=== PATIENT | female | born 1945 | race Caucasian/White ===

== ENCOUNTER 2019-03-29 07:02 | Inpatient (IN) | payer OTHER, BC ==
[2019-03-14 12:54] VITALS: BMI 29.3
[2019-03-29] MEDS ORDERED: ceFAZolin SODIUM 1 GM VIAL ONE (07:44)
[2019-03-29] MEDS ORDERED: VANCOMYCIN 1,000 MG VIAL (RESTRICTED TO ID ONLY) ONE (07:44)
[2019-03-29] MEDS ORDERED: TRANEXAMIC ACID 1000 MG/10 ML VIAL IVPUSH ONE (07:45)
[2019-03-29] MEDS ORDERED: CELECOXIB 200 MG CAPSULE PO ONE (07:45)
[2019-03-29] MEDS ORDERED: CEFAZOLIN 2 GM in DEXTROSE 5%-WATER - 50 ML IVPB ONE (07:45)
--- NOTE | 2019-03-29 07:58 | HP ---
Satellite PMH - Chief Complaint Chief Complaint: left hip pain - Past Medical History Allergies/Adverse Reactions: Allergies Allergy/AdvReac Type Severity Reaction Status Date / Time ratliff Allergy Severe Hives Verified 03/14/19 12:43 kiwi Allergy Severe Hives Verified 03/14/19 12:43 mushroom Allergy Severe Hives Verified 03/14/19 12:43 Penicillins Allergy Severe Rash Verified 03/14/19 12:43 pineapple Allergy Severe Hives Verified 03/14/19 12:43 strawberry Allergy Severe Hives Verified 03/14/19 12:43 Sulfa (Sulfonamide Allergy Severe Hives Verified 03/14/19 12:43 Antibiotics) wheat Allergy Intermediate Hives Verified 03/14/19 12:43 cigarette smoke AdvReac Severe MIGRAINE Verified 03/14/19 12:43 HEADACHES latex AdvReac Severe Itching Verified 03/29/19 07:46 - Current Medications Current Medications: Home Medications Medication Instructions Recorded Aspirin/Acetaminophen/Caffeine 1 each PO DAILY PRN 03/14/19 [Excedrin Migraine Caplet] Atorvastatin Ca [Lipitor] 20 mg PO HS 03/14/19 Estradiol [Estrace] 42.5 gm VG ASDIR 03/14/19 Fexofenadine HCl [Irene Allergy] 180 mg PO DAILY PRN 03/14/19 Fluoxetine HCl [Prozac] 30 mg PO DAILY 03/14/19 LORazepam [Ativan] 1 mg PO BID 03/14/19 Lorazepam [Ativan] 1 mg PO DAILY PRN 03/14/19 Zolmitriptan [Zomig] 2.5 mg PO DAILY PRN 03/14/19 Acetaminophen [Tylenol] 650 mg PO ASDIR PRN 03/29/19 Satellite Physical Exam - Physical Examination Vital Signs: Vital Signs Period Temp Pulse Resp BP Sys/Araujo Pulse Ox Last 24 Hr 98 F 98 18 124/78 General Appearance: Well Nourished, Well Developed, Alert & Oriented x3 ENT: Clear Lung: Normal air movement Heart: Regular rate & rhythm Extremities: Other (left hip- + ttp, decr rom, nvi, xrays show grade 4 hip djd) Neurological: Intact, Alert, Oriented Satellite Impression/Plan - Impression/Plan Impression: left hip djd Operative Procedure: left shonda thr Date to be Performed: 03/29/19
[2019-03-29] MEDS ORDERED: MIDAZOLAM HCL 2 MG/2 ML SINGLE DOSE VIAL ONE ×2 (08:10→10:01)
[2019-03-29] MEDS ORDERED: BUPIVACAINE HCL/PF 0.5% (5 MG/ML) 30 ML VIAL IJ ONE (09:41)
[2019-03-29] MEDS ORDERED: ePHEDrine SULFATE 50 MG/1 ML AMPULE ONE (09:47)
[2019-03-29] MEDS ORDERED: PHENYLEPHRINE HCL 10 MG/1 ML SINGLE DOSE VIAL ONE (09:47)
[2019-03-29] MEDS ORDERED: SUCCINYLCHOLINE CHLORIDE 200 MG/10 ML SYRINGE ONE (09:47)
[2019-03-29] MEDS ORDERED: PROPOFOL 20 ML ONE ×3 (09:48)
[2019-03-29] MEDS ORDERED: ZOLMITRIPTAN 2.5 MG PO PRN (09:55)
[2019-03-29] MEDS ORDERED: MAG HYDROX/AL HYDROX/SIMETH 30 ML UNIT-DOSE CUP PO PRN (09:56)
[2019-03-29] MEDS ORDERED: MAGNESIUM HYDROX 2400MG/30ML ORAL SUSPENSION 30 ML CUP PO PRN (09:56)
[2019-03-29] MEDS ORDERED: ONDANSETRON 4 MG/2 ML VIAL IVPUSH PRN ×2 (09:56→11:56)
[2019-03-29] MEDS ORDERED: PATIENT'S OWN MEDICATION (NON-FORMULARY) (Estradiol [Estrace] 42.5 GM) VG SCH (10:00)
[2019-03-29] MEDS ORDERED: LACTATED RINGERS SOLUTION 1,000 ML IV SCH (10:00)
[2019-03-29] MEDS ORDERED: TRANEXAMIC ACID 1000 MG/10 ML VIAL ONE (11:05)
--- NOTE | 2019-03-29 11:30 | OP ---
Operative Note - Note: Operative Date: 03/29/19 (juan francisco) Pre-Operative Diagnosis: left hip djd Operation: left shonda thr Post-Operative Diagnosis: Same as Pre-op Surgeon: Alfonso Galindo Otorhinolaryngologist: Nj Key Anesthesiologist/INDUSTRIAL ECONOMICS TEACHER: Clarice Hansen Anesthesia: Spinal, Local Specimens Removed: femoral head Estimated Blood Loss (mls): 300
[2019-03-29] MEDS ORDERED: ACETAMINOPHEN 1000 MG/100 ML VIAL (NON FORMULARY) IVPB ONE (11:53)
[2019-03-29] MEDS ORDERED: oxyCODONE HCL 5 MG TABLET PO PRN ×2 (11:53)
[2019-03-29] MEDS ORDERED: ACETAMINOPHEN INJECTION 100 ML IVPB ONE (12:04)
--- NOTE | 2019-03-29 17:12 | PN ---
Progress Note, Physician Chief Complaint: Left Total Hip Replacement History of Present Illness: Previous notes and events reviewed awake and alert NAD POD #0 L THR patient states pain is controlled denies chest pain or SOB - Current Medication List Current Medications: Active Medications Al Hydroxide/Mg Hydroxide (Mylanta Oral Suspension -) 30 ml PO Q4H PRN PRN Reason: DYSPEPSIA Aspirin (Ecotrin -) 325 mg PO DAILY@0800 [facility] Atorvastatin Calcium (Lipitor -) 20 mg PO HS [facility] Fentanyl (Sublimaze Injection -) 50 mcg IVPUSH [id number] PRN PRN Reason: PAIN-PACU ORDER X 4 DOSES ONLY Fluoxetine HCl (Prozac -) 30 mg PO DAILY [facility] Cefazolin Sodium/Dextrose (Ancef 2 Gm Premixed Ivpb -) 2 gm in 50 mls @ 100 mls /hr IVPB Q8H-IV [facility] Stop: 03/30/19 02:29 Lactated Ringer's (Lactated Ringers Solution) 1,000 mls @ 125 mls/hr IV ASDIR [facility] Stop: 03/30/19 06:00 Last Admin: 03/29/19 12:30 Dose: 0 mls Lactated Ringer's (Lactated Ringers Solution) 1,000 mls @ 125 mls/hr IV ASDIR [facility] Lorazepam (Ativan -) 1 mg PO BID [facility] Magnesium Hydroxide (Milk Of Magnesia -) 30 ml PO PRN PRN PRN Reason: CONSTIPATION Multivitamins/Minerals/Vitamin C (Tab-A-Vit -) 1 tab PO DAILY [facility] Non-Formulary Medication (Estradiol [Estrace]) 42.5 gm VG ASDIR [facility] Non-Formulary Medication (Zolmitriptan [Zomig]) 2.5 mg PO DAILY PRN PRN Reason: MIGRAINE HEADACHE Ondansetron HCl (Zofran Injection) 4 mg IVPUSH Q6H PRN PRN Reason: NAUSEA Oxycodone HCl (Roxicodone -) 5 mg PO Q3H PRN PRN Reason: PAIN LEVEL 1-5 Oxycodone HCl (Roxicodone -) 10 mg PO Q3H PRN PRN Reason: PAIN LEVEL 6-10 Pantoprazole Sodium (Protonix -) 40 mg PO DAILY [facility] Senna/Docusate Sodium (Pericolace -) 2 tablet PO BID [facility] - Objective Vital Signs: Vital Signs Temperature 98.2 F 03/29/19 12:50 Pulse Rate 82 03/29/19 12:50 Respiratory Rate 18 03/29/19 12:50 Blood Pressure 118/72 03/29/19 12:50 O2 Sat by Pulse Oximetry (%) 100 03/29/19 12:50 Constitutional: Yes: No Distress, Calm Eyes: Yes: Conjunctiva Clear HENT: Yes: Atraumatic Cardiovascular: Yes: Regular Rate and Rhythm Respiratory: Yes: Regular, CTA Bilaterally Gastrointestinal: Yes: Normal Bowel Sounds, Soft Musculoskeletal: Yes: Muscle Weakness Extremities: Yes: WNL Edema: No Wound/Incision: Yes: Dressing Dry and Intact Neurological: Yes: Alert, Oriented Psychiatric: Yes: Alert, Oriented Problem List - Problems (1) Status post left hip replacement Assessment/Plan: -Orthopedic on board -pain control -Incentive Spirometer -Cefazolin -dvt ppx -stool softener -PT Code(s): Z96.642 - PRESENCE OF LEFT ARTIFICIAL HIP JOINT Assessment/Plan see problem list dvt ppx
[2019-03-29] MEDS: CEFAZOLIN 2 GM/D5W 2 GM/50 ML ML IVPB SCH (18:23)
[2019-03-29] MEDS ORDERED: ACETAMINOPHEN/CAFFEINE/BUTALBITAL 1 TAB PO ONE (21:33)
[2019-03-29] MEDS: ATORVASTATIN CA 20 MG TABLET (FP) PO SCH (21:51)
[2019-03-29] MEDS: SENNOSIDES/DOCUSATE COMBO (SENNA PLUS) TABLET (UD) PO SCH (21:52)
[2019-03-29] MEDS: LORazepam 1 MG TABLET PO SCH (21:53)
[2019-03-30] MEDS: CEFAZOLIN 2 GM/D5W 2 GM/50 ML ML IVPB SCH (02:01)
[2019-03-30] MEDS: ACETAMINOPHEN 325 MG TABLET (FP) PO PRN (04:57)
[2019-03-30] MEDS ORDERED: KETOROLAC TROMETHAMINE 30 MG/1 ML VIAL IVPUSH ONE (06:45)
[2019-03-30 07:39] LABS: HEMATOCRIT 28.7 % (32.4-45.2); HEMOGLOBIN 9.6 GM/dl (10.7-15.3); MCH 27.9 pg (25.7-33.7); MCHC 33.3 g/dl (32.0-36.0); MEAN CELL VOLUME 83.8 fl (80-96); MEAN PLT VOLUME 8.3 fl (7.5-11.1); PLATELET COUNT 176 K/MM3 (134-434); RBC 3.42 M/mm3 (3.60-5.2); RDW 12.8 % (11.6-15.6)
[2019-03-30] MEDS: SENNOSIDES/DOCUSATE COMBO (SENNA PLUS) TABLET (UD) PO SCH ×3 (07:48→21:40)
[2019-03-30] MEDS: PANTOPRAZOLE 40 MG TABLET (FP) PO SCH ×2 (07:49→09:46)
[2019-03-30] MEDS: MULTIVITAMINS (DAILY MVI) TABLET (FP) PO SCH ×2 (07:49→09:46)
[2019-03-30] MEDS: LACTATED RINGERS SOLUTION 1,000 ML IV SCH ×2 (07:49→16:07)
[2019-03-30] MEDS ORDERED: KETOROLAC TROMETHAMINE 30 MG/1 ML VIAL IVPUSH SCH (08:15)
--- NOTE | 2019-03-30 08:49 | PN ---
Progress Note (short form) - Note Progress Note: Post op day#1.S/p Left total hip MAKOplasty under spinal anesthesia with L2 paravertebral block uneventful.Patient stable and c/o pain score of 5-6/10 for which she is on medication.No any anesthsia related problem.Patient Dc from the anesthesia care.
--- NOTE | 2019-03-30 08:54 | PN ---
Progress Note, Physician Chief Complaint: AWAKE ALERT EVENTS REVIEWED + URINE OUTPUT +FLATULENCE PAIN CONTROLLED - Current Medication List Current Medications: Active Medications Acetaminophen (Tylenol -) 650 mg PO Q4H PRN PRN Reason: PAIN LEVEL 1-5 Last Admin: 03/30/19 04:57 Dose: 650 mg Al Hydroxide/Mg Hydroxide (Mylanta Oral Suspension -) 30 ml PO Q4H PRN PRN Reason: DYSPEPSIA Aspirin (Ecotrin -) 325 mg PO DAILY@0800 [facility] Atorvastatin Calcium (Lipitor -) [address] [facility] Last Admin: 03/29/19 21:51 Dose: 20 mg Fluoxetine HCl (Prozac -) [address] [facility] Lactated Ringer's (Lactated Ringers Solution) 1,000 mls @ 125 mls/hr IV ASDIR [facility] Last Admin: 03/30/19 07:49 Dose: Not Given Ketorolac Tromethamine (Toradol Injection -) [address] [facility] Stop: 03/31/19 01:01 Lorazepam (Ativan -) [address] [facility] Last Admin: 03/29/19 21:53 Dose: 1 mg Magnesium Hydroxide (Milk Of Magnesia -) 30 ml PO PRN PRN PRN Reason: CONSTIPATION Multivitamins/Minerals/Vitamin C (Tab-A-Vit -) [address] [facility] Last Admin: 03/30/19 07:49 Dose: Not Given Non-Formulary Medication (Estradiol [Estrace]) 42.[address] [facility] Non-Formulary Medication (Zolmitriptan [Zomig]) 2.5 mg PO DAILY PRN PRN Reason: MIGRAINE HEADACHE Ondansetron HCl (Zofran Injection) 4 mg IVPUSH Q6H PRN PRN Reason: NAUSEA Oxycodone HCl (Roxicodone -) 5 mg PO Q3H PRN PRN Reason: PAIN LEVEL 1-5 Oxycodone HCl (Roxicodone -) 10 mg PO Q3H PRN PRN Reason: PAIN LEVEL 6-10 Last Admin: 03/29/19 17:25 Dose: 10 mg Pantoprazole Sodium (Protonix -) [address] [facility] Last Admin: 03/30/19 07:49 Dose: Not Given Senna/Docusate Sodium (Pericolace -) [address] [facility] Last Admin: 03/30/19 07:48 Dose: Not Given - Objective Vital Signs: Vital Signs Temperature 98.2 F 03/30/19 05:00 Pulse Rate 96 H 03/30/19 05:00 Respiratory Rate 19 03/30/19 05:00 Blood Pressure 153/62 03/30/19 05:00 O2 Sat by Pulse Oximetry (%) 97 03/30/19 07:51 Constitutional: Yes: Mild Distress Cardiovascular: Yes: Regular Rate and Rhythm Respiratory: Yes: WNL Gastrointestinal: Yes: WNL Genitourinary: Yes: WNL Musculoskeletal: Yes: Other Neurological: Yes: WNL ...Motor Strength: LLE Psychiatric: Yes: WNL Labs: CBC, BMP 03/30/19 06:20 Problem List - Problems (1) Status post left hip replacement Code(s): Z96.642 - PRESENCE OF LEFT ARTIFICIAL HIP JOINT Assessment/Plan PAIN CONTROLLED TO GO HOME FOR DISCHARGE WITH PROJECTOR OPERATOR/PT OOB TO CHAIR PT EVAL APPRECIATED DVT PROPHYLAXIS
--- NOTE | 2019-03-30 08:58 | SPEC ---
DATE OF OPERATION: 03/29/2019 PREOPERATIVE DIAGNOSIS: Degenerative joint disease left hip. POSTOPERATIVE DIAGNOSIS: Degenerative joint disease left hip. PROCEDURE PERFORMED: Left total hip replacement with robotic-assisted navigation (MAKOplasty). SURGICAL ATTENDING: Alfonso Galindo MD FILM CUTTER: GERONIMO Pope ANESTHESIA: Regional and spinal. CLOSURE: A Jayshree total hip system with a 46 press-fit Trident II acetabular shell, a No. 5 Accolade II press-fit femoral stem, and a +3 MDM head and liner for the head, number 1 Vicryl for fascia, 0 and 2-0 subcutaneous, 3-0 V-Loc for skin with skin glue, 4-0 undyed Vicryl for pin sites. ESTIMATED BLOOD LOSS: Less 100 mL. COMPLICATIONS: None. CONDITION: To the recovery room in stable condition. DESCRIPTION OF PROCEDURE: The patient was taken to the operating room on March 29, 2019. General and regional anesthesia was administered by the anesthesiologist. IV Kefzol and TXA were administered prophylactically prior to the case. The patient was placed in the lateral decubitus position will all prominences well-padded. The left hip area was prepped and draped in the usual sterile fashion. Using 3 small stab incisions over the iliac crest, 3 threaded pins were drilled in power fashion through the 2 tables of the crest. These pins were fastened and the navigation array for the Drew navigation system. Next, a 12 to 15-cm curved longitudinal incision over the posterolateral aspect of the greater trochanter was incised. Hemostasis was achieved with Bovie cautery. Sharp dissection was carried down to level of the fascia. The fascia was opened the entire length of the incision, spreading the fibers of the gluteus agus in the direction of origin. A Charnley retractor was placed in this layer. Care was taken not to impale the sciatic nerve. The short external rotators were detached off the insertion of the greater trochanter and peeled off the capsule. A posterior capsulotomy was then performed. A check point was malleted into the greater trochanter and a point on the inferior pole of the patella was obtained as well. These 2 points were used to assess the preoperative offset and limb lengths of the hip. The hip was then dislocated. The femoral neck was then osteotomized down to the appropriate level as directed by the navigation device. Anterior and posterior retractors were placed, exposing the acetabulum. A circumferential labral excision was performed. A check point was malleted into the acetabulum as well. Multiple sites inside the acetabulum and around the rim were utilized to register the acetabulum with the navigation device. An excellent registration of less than 0.5 mm was obtained. The hip was then reamed with the appropriate reamer down to the appropriate depth, with the appropriate orientation and version as assessed on our preoperative plan for this patient. The reamer was removed and the acetabulum was inspected to have good bleeding surfaces throughout. The real acetabular cup was then malleted down into place, with the holes in the appropriate position, until an excellent fixation was obtained. No screws were necessary. The navigation device ensured appropriate orientation and version, with the depth as predetermined. The appropriate liner was then clipped into place. Attention was directed to the femur. The proximal femur was prepared by use a box chisel, a canal finder and serial broaches until the broach achieved excellent rigidity in the proximal femur with the appropriate version being applied. A calcar planer was used to smooth off the calcar flush with the trial components. A trial reduction with the appropriate head was done, and the hip was reduced. The hip was taken through a range of motion from full extension with external rotation to marked flexion, and was stable at 90 degrees of flexion. It was stable to marked abduction and internal rotation, with a positive hang test and negative telescoping. Limb lengths were ascertained visually as well as with the navigation device to be within the targeted range for this patient. The trial component was removed. The real component was then malleted into place. The head was cold welded to the trunnion, and the hip was reduced. Range of motion, stability and limb lengths were as described in the trial component. Then the hip was pulse antibiotic irrigated. Vancomycin powder was placed in the hip joint. The capsule was closed. The fascia was then closed as well using number 1 Vicryl interrupted suture, 0 and 2-0 subcutaneous, and 3-0 V-Loc for the skin. 4-0 undyed Vicryl was used to close the pin sites after the pins were removed. All check points were also removed. Sterile Aquacel dressing was applied. The patient was awakened from anesthesia and transferred into the supine position. Bilateral SCDs and an abduction pillow were placed. X-rays revealed excellent position of the components. The patient was transferred to the recovery room in stable condition, with no complications. Estimated blood loss was less than 100 mL. Govind [id number]
[2019-03-30] MEDS ORDERED: traMADol HCL 50 MG TABLET PO PRN (09:01)
--- NOTE | 2019-03-30 09:04 | PN ---
Progress Note (short form) - Note Progress Note: Ortho Pt seen and examined s/p left shonda thr pod #1 Selected Entries 03/30/19 05:00 Temperature 98.2 F Pulse Rate 96 H Respiratory 19 Rate Blood Pressure 153/62 Laboratory Tests 03/30/19 06:20 WBC 7.0 Hgb 9.6 L Hct 28.7 L Plt Count 176 dressing c/d/i, calf soft, nt nvi a/p PT hip precautions dvt ppx pain control d/c home tomorrow if stable
[2019-03-30] MEDS: LORazepam 1 MG TABLET PO SCH ×2 (09:46→21:40)
[2019-03-30] MEDS: ASPIRIN 325 MG ENTERIC COATED TABLET (FP) PO SCH (09:46)
[2019-03-30] MEDS: FLUoxetine HCL 10 MG CAPSULE (FP) PO SCH (09:47)
[2019-03-30] MEDS: KETOROLAC TROMETHAMINE 30 MG/1 ML VIAL IVPUSH SCH ×2 (13:33→18:04)
[2019-03-30] MEDS: ATORVASTATIN CA 20 MG TABLET (FP) PO SCH (21:40)
[2019-03-31] MEDS: KETOROLAC TROMETHAMINE 30 MG/1 ML VIAL IVPUSH SCH (00:40)
[2019-03-31] MEDS: ACETAMINOPHEN 325 MG TABLET (FP) PO PRN ×2 (00:41→09:55)
[2019-03-31 08:17] LABS: HEMATOCRIT 25.6 % (32.4-45.2); HEMOGLOBIN 8.5 GM/dl (10.7-15.3); MCH 27.8 pg (25.7-33.7); MCHC 33.3 g/dl (32.0-36.0); MEAN CELL VOLUME 83.5 fl (80-96); MEAN PLT VOLUME 8.2 fl (7.5-11.1); PLATELET COUNT 155 K/MM3 (134-434); RBC 3.07 M/mm3 (3.60-5.2); RDW 13.1 % (11.6-15.6)
--- NOTE | 2019-03-31 08:22 | PN ---
Progress Note (short form) - Note Progress Note: Ortho Pt seen and examined s/p left shonda thr pod #2 Selected Entries 03/31/19 05:48 Temperature 98.0 F Pulse Rate 118 H Respiratory 18 Rate Blood Pressure 118/49 L Laboratory Tests 03/31/19 07:20 WBC Pending Hgb Pending Hct Pending Plt Count Pending dressing c/d/i, calf soft, nt nvi a/p PT hip precautions dvt ppx pain control d/c home today f/u in 1 week
--- NOTE | 2019-03-31 08:25 | DS ---
Physical Examination Vital Signs: Vital Signs Temperature 98.0 F 03/31/19 05:48 Pulse Rate 118 H 03/31/19 05:48 Respiratory Rate 18 03/31/19 05:48 Blood Pressure 118/49 L 03/31/19 05:48 O2 Sat by Pulse Oximetry (%) 94 L 03/31/19 05:48 Discharge Summary Problems reviewed: Yes Reason For Visit: OTEOARTHRITIS Current Active Problems Status post left hip replacement (Acute) Procedures: Principal: left thr Hospital Course: admitted for elective left shonda thr, post-op as per protocol, stable for d/c Condition: Good - Instructions Diet, Activity, Other Instructions: Post-op Instructions-Total Hip Replacement Call the office for a follow-up appointment in 1 week - [phone] Aspirin 325mg daily for 6 weeks. Pain medication was sent into your pharmacy. Apply Graduated Compression Stockings (TEDs) to both lower extremities- remove daily for hygiene ONLY Apply Sequential Compression Device (SCDs) to both Lower extremities remove for PT and hygiene ONLY Apply cold packs to affected area for 15 minutes every 2 hours. Physical Therapist will come to your home for the first 5 days. You will be set up with outpatient PT at your first post-operative visit. Patient may ambulate as tolerated-encourage self care (at least every 2-3 hours while awake) with walker or cane Maintain Aquacel (waterproof) dressing to operative wound (will be removed by surgeon at first office visit) Shower with Aquacel dressing in place-if Aquacel integrity compromised, remove and apply dry sterile dressing and notify Orthopedist. DO NOT SHOWER unless Orthopedists approves without Aquacel dressing CONTACT THE OFFICE FOR ANY CHANGE IN YOUR CONDITION (for example-fever greater than 102 degrees, excessive bleeding from operative site, purulent drainage, severe swelling or pain) GO TO THE EMERGENCY ROOM IF THERE IS A MEDICAL EMERGENCY Hip Precautions: * Keep a rolled towel under affected heel while in bed or chair (to keep knee in extension) * Dependent upon approach: * Posterior - do not cross legs; do not sit on low chairs or toilets. * If you have any questions, please do not hesitate to call the office - . Referrals: Alfonso Galindo MD [Staff Physician] - Disposition: VNS/HOME HEALTH CARE - Home Medications Comprehensive Discharge Medication List: Ambulatory Orders Aspirin/Acetaminophen/Caffeine [Excedrin Migraine Caplet] 1 each PO DAILY PRN Atorvastatin Ca [Lipitor] 20 mg PO HS 03/14/19 Estradiol [Estrace] 42.5 gm VG ASDIR 03/14/19 Fexofenadine HCl [Irene Allergy] 180 mg PO DAILY PRN 03/14/19 Fluoxetine HCl [Prozac] 30 mg PO DAILY 03/14/19 LORazepam [Ativan] 1 mg PO BID 03/14/19 Lorazepam [Ativan] 1 mg PO DAILY PRN 03/14/19 Zolmitriptan [Zomig] 2.5 mg PO DAILY PRN 03/14/19 Acetaminophen [Tylenol] 650 mg PO ASDIR PRN 03/29/19 Aspirin Coated [Ecotrin -] 325 mg PO DAILY tablet. 03/29/19 Oxycodone HCl/Acetaminophen [Percocet 5-325 mg Tablet -] 1 - 2 tab PO Q6H #50 tab MDD 8 03/29/19 Tramadol HCl 50 mg PO Q6H #30 tablet MDD 4 03/31/19
--- NOTE | 2019-03-31 09:00 | PN ---
Progress Note, Physician Chief Complaint: FEELING BETTER WOULD LIKE TO GO HOME - Current Medication List Current Medications: Active Medications Acetaminophen (Tylenol -) 650 mg PO Q4H PRN PRN Reason: PAIN LEVEL 1-5 Last Admin: 03/31/19 00:41 Dose: 650 mg Al Hydroxide/Mg Hydroxide (Mylanta Oral Suspension -) 30 ml PO Q4H PRN PRN Reason: DYSPEPSIA Aspirin (Ecotrin -) 325 mg PO DAILY@0800 [facility] Last Admin: 03/30/19 09:46 Dose: 325 mg Atorvastatin Calcium (Lipitor -) 20 mg PO HS [facility] Last Admin: 03/30/19 21:40 Dose: 20 mg Fluoxetine HCl (Prozac -) 30 mg PO DAILY [facility] Last Admin: 03/30/19 09:47 Dose: 30 mg Lactated Ringer's (Lactated Ringers Solution) 1,000 mls @ 125 mls/hr IV ASDIR [facility] Last Admin: 03/30/19 16:07 Dose: Not Given Lorazepam (Ativan -) 1 mg PO BID [facility] Last Admin: 03/30/19 21:40 Dose: 1 mg Magnesium Hydroxide (Milk Of Magnesia -) 30 ml PO PRN PRN PRN Reason: CONSTIPATION Multivitamins/Minerals/Vitamin C (Tab-A-Vit -) 1 tab PO DAILY [facility] Last Admin: 03/30/19 09:46 Dose: 1 tab Non-Formulary Medication (Estradiol [Estrace]) 42.5 gm VG ASDIR [facility] Non-Formulary Medication (Zolmitriptan [Zomig]) 2.5 mg PO DAILY PRN PRN Reason: MIGRAINE HEADACHE Ondansetron HCl (Zofran Injection) 4 mg IVPUSH Q6H PRN PRN Reason: NAUSEA Oxycodone HCl (Roxicodone -) 5 mg PO Q3H PRN PRN Reason: PAIN LEVEL 1-5 Oxycodone HCl (Roxicodone -) 10 mg PO Q3H PRN PRN Reason: PAIN LEVEL 6-10 Last Admin: 03/29/19 17:25 Dose: 10 mg Pantoprazole Sodium (Protonix -) 40 mg PO DAILY [facility] Last Admin: 03/30/19 09:46 Dose: 40 mg Senna/Docusate Sodium (Pericolace -) 2 tablet PO BID [facility] Last Admin: 03/30/19 21:40 Dose: 2 tablet Tramadol HCl (Ultram -) 50 mg PO Q6H PRN PRN Reason: PAIN LEVEL 6-10 - Objective Vital Signs: Vital Signs Temperature 98.0 F 03/31/19 05:48 Pulse Rate 118 H 03/31/19 05:48 Respiratory Rate 18 03/31/19 05:48 Blood Pressure 118/49 L 03/31/19 05:48 O2 Sat by Pulse Oximetry (%) 94 L 03/31/19 05:48 Constitutional: Yes: No Distress Eyes: Yes: WNL HENT: Yes: WNL Neck: Yes: WNL Cardiovascular: Yes: WNL Respiratory: Yes: WNL Gastrointestinal: Yes: WNL Wound/Incision: Yes: Clean/Dry Neurological: Yes: WNL Labs: CBC, BMP 03/31/19 07:20 Problem List - Problems (1) Status post left hip replacement Code(s): Z96.642 - PRESENCE OF LEFT ARTIFICIAL HIP JOINT Assessment/Plan PAIN CONTROLLED TO GO HOME FOR DISCHARGE WITH WANT AD SUPERVISOR/PT OOB TO CHAIR PT EVAL APPRECIATED DVT PROPHYLAXIS DC PLANNING
[2019-03-31] MEDS ORDERED: PT OWN MED DRAWER 7, Y5N ONE (09:42)
[2019-03-31] MEDS: LORazepam 1 MG TABLET PO SCH (09:53)
[2019-03-31] MEDS: MULTIVITAMINS (DAILY MVI) TABLET (FP) PO SCH (09:53)
[2019-03-31] MEDS: FLUoxetine HCL 10 MG CAPSULE (FP) PO SCH (09:53)
[2019-03-31] MEDS: SENNOSIDES/DOCUSATE COMBO (SENNA PLUS) TABLET (UD) PO SCH (09:54)
[2019-03-31] MEDS: ASPIRIN 325 MG ENTERIC COATED TABLET (FP) PO SCH (09:54)
[2019-03-31] MEDS: PANTOPRAZOLE 40 MG TABLET (FP) PO SCH (09:54)
[2019-03-31 10:01] VITALS: TEMP 98.6
[2019-03-31 10:48] VITALS: BP 116/54; PULSE 110
--- NOTE | 2019-04-01 15:35 | PATH ---
Surgical Pathology Report Patient Name: CROW QUINTANILLA Med. Rec. #: [id number] /Age/Gender: 1945 (Age: 73) / F Account: [id number] Location: [facility] MED-SURG Taken: 03/29/2019 Received: 03/29/2019 Reported: 04/01/2019 Physicians: Alfonso Galindo M.D. Specimen(s) Received LEFT FEMORAL HEAD Clinical History Left hip osteoarthritis Final Diagnosis FEMORAL HEAD, LEFT, TOTAL HIP REPLACEMENT: DEGENERATIVE JOINT DISEASE. Electronically Signed Norma Dubon M.D. Gross Description Received in formalin, labeled "left femoral head," is a 4.0 x 4.0 x 4.0 cm. femoral head with a 1.5 cm length portion of femoral neck attached. The margin of resection is smooth. There is a 2.5 cm greatest dimension area of eburnation present. The remaining articular surface is pruett-yellow and diffusely granular and nodular. The underlying trabecular bone is yellow and hard. A surgical device sales representative section is submitted in one cassette, following decalcification. /03/30/2019 [facility]03/30/2019
== END 2019-03-31 11:02 | disposition home health service (06) | DRG 470 ==
LOC: FM/S 07:02
PROVIDERS: ADMIT Orthopaedic Surgery; ATTEND Orthopaedic Surgery
PROC: 8E0W0CZ Robotic Assisted Procedure of Trunk Region, Open Approach (ICD-10-PCS; 2019-03-29)
PROC: 0SRB03A Replacement of Left Hip Joint with Ceramic Synthetic Substitute, Uncemented, Open Approach (ICD-10-PCS; principal; 2019-03-29 10:23)
DX: M16.12 Unilateral primary osteoarthritis, left hip (principal)
CPT/HCPCS: 36415; 73502-TC-LT-FY; 85027; 88305-TC; 88311-TC; 94760; 97116-GP; 97163-GP; J0131